=== PATIENT | female | born 1965 | race Hispanic/Latino ===

== ENCOUNTER → 2023-09-24 | Outpatient (CLI) | payer OTHER | END | disposition home or self-care (01) | LOC: RAH 10:00 | PROVIDERS: ATTEND Physical Medicine & Rehabilitation | DX: M99.05 Segmental and somatic dysfunction of pelvic region (principal); M41.9 Scoliosis, unspecified | CPT/HCPCS: 72110 ==

== ENCOUNTER → 2023-10-24 | Outpatient (CLI) | payer OTHER | END | disposition home or self-care (01) | LOC: RAH 10:46 | PROVIDERS: ATTEND Physical Medicine & Rehabilitation | DX: M41.85 Other forms of scoliosis, thoracolumbar region (principal); M41.9 Scoliosis, unspecified; M99.05 Segmental and somatic dysfunction of pelvic region | CPT/HCPCS: 72082 ==

== ENCOUNTER → 2024-02-18 | Outpatient (CLI) | payer OTHER | END | disposition home or self-care (01) | LOC: RAH 09:30 | PROVIDERS: ATTEND Physical Medicine & Rehabilitation | DX: M48.07 Spinal stenosis, lumbosacral region (principal); M54.16 Radiculopathy, lumbar region; M51.37 Other intervertebral disc degeneration, lumbosacral region; M51.26 Other intervertebral disc displacement, lumbar region | CPT/HCPCS: 72148 ==

== ENCOUNTER → 2024-08-18 | Outpatient (CLI) | payer OTHER ==
--- NOTE | 2024-08-20 18:05 | HMCIMG ---
CERV SPINE 4-5 VWS REASON: Cervical facet joint syndrome. COMPARISON: None TECHNIQUE: 6 images of cervical spine were obtained including flexion and extension views. FINDINGS: There is straightening of normal lordotic cervical curvature which may be muscle spasm or positioning. Disc space narrowings are seen at C5-6 and C6-7 level. No evidence of fracture or dislocation is no loss of vertebral height is seen. IMPRESSION: Findings as described above.
== END | disposition home or self-care (01) ==
LOC: RAH 11:20
PROVIDERS: ATTEND Physical Medicine & Rehabilitation
DX: M54.16 Radiculopathy, lumbar region (principal); M47.812 Spondylosis without myelopathy or radiculopathy, cervical region; M48.02 Spinal stenosis, cervical region
CPT/HCPCS: 72050